=== PATIENT | female | born 1980 | race Caucasian/White ===

== ENCOUNTER 2017-08-23 08:43 | Day surgery (SDC) | payer BC ==
[~2017-08-23] VITALS: Ht 170.2 cm; Wt 93.9 kg
[~2017-08-23 08:43] MED LIST: BUPIVACAINE-EPI 0.25%-1:200000 50 ML VIAL. ONE; HYDROmorphone 2 MG/ML VIAL IV PRN; IOHEXOL 300 MG/ML 50 ML VIAL. ONE; IV RINGERS,LACTATED 1000ML 1,000 ML IV SCH; LIDOCAINE 1% PF 2 ML VIAL. ID PRN; MORPHINE SULFATE 2 MG/ML DISP.SYRIN. IV PRN; ONDANSETRON PF 4 MG/2 ML VIAL. IV PRN; PROCHLORPERAZINE 10 MG/2 ML VIAL. IV PRN; SURGICEL HEMOSTAT 4X8 EACH. ONE; fentaNYL PF VIAL 100 MCG/2 ML VIAL IV PRN
[2017-08-23] MEDS ORDERED: ONDANSETRON PF 4 MG/2 ML VIAL. ONE (09:56)
[2017-08-23] MEDS ORDERED: MIDAZOLAM HCL/PF 2 MG/2 ML VIAL. ONE (09:56)
[2017-08-23] MEDS ORDERED: LIDOCAINE 2% PF Vial for OR 5 ML VIAL. ONE (09:56)
[2017-08-23] MEDS ORDERED: ROCURONIUM 50 MG/5 ML VIAL. ONE (09:56)
[2017-08-23] MEDS ORDERED: fentaNYL PF VIAL 100 MCG/2 ML VIAL ONE (09:56)
[2017-08-23] MEDS ORDERED: PROPOFOL 20 ML IV ONE (09:56)
[2017-08-23] MEDS ORDERED: DEXAMETHASONE SOD PHOS 20 MG/5 ML VIAL. ONE (09:56)
[2017-08-23] MEDS ORDERED: GLYCOPYRROLATE 1 MG/5 ML VIAL. ONE (11:11)
[2017-08-23] MEDS ORDERED: KETOROLAC 30 MG/ML INJ FOR OR. INJ ONE (11:41)
[2017-08-23] MEDS ORDERED: SEVOFLURANE 31 TO 60 MINUTES. IH ONE (11:41)
--- NOTE | 2017-08-23 11:44 | PDOC4 ---
Operative Note Operative Note Date: 08/23/2017 Preoperative diagnosis: Chronic cholecystitis Postoperative diagnosis: Same Procedure: Laparoscopic cholecystectomy Surgeon: Dheeraj Specimen: Gallbladder Dictation: Patient is a 37-year-old female is had right upper quadrant abdominal pain and abnormal ultrasound and HIDA scan. The procedure of lap scopic cholecystectomy was explained to the patient detail was benefits were also discussed including bleeding infection injury to intra-abdominal contents possibly necessitating further or open operations alternatives to this procedure also discussed with the patient seemed understanding gave both verbal and written consent had procedure performed. Patient was taken to the operating room placed in supine position general anesthesia was initiated once patient was asleep and intubated her abdomen was prepped and draped in usual sterile fashion using ChloraPrep and area just below the umbilicus injected with quarter percent Marcaine with epinephrine incisions made lead blade scalpel and a varies needle was placed within the abdomen pneumoperitoneum was achieved once this complete a 11 mm port was placed in fibromata camera was placed within the abdomen. The abdomen was inspected no other at maladies were noted at this time one 5 mm port was placed in the epigastrium under direct visualization a second port was placed in the right upper quadrant 2 . The dome of the gallbladder was grasped retracted cephalad the infundibulum of the gallbladder was grasped retracted laterally exposing the triangle clothe adherent tissues the triangle are taken down bluntly dissection exposing the cystic duct and cystic artery both were doubly clipped and transected the gallbladder was taken off the liver with hook electrocautery placed within an Endo Catch bag and removed from the umbilicus right upper quadrant was then irrigated and suctioned dry hemostasis deemed to be appropriate and the pneumoperitoneum was reduced all ports removed fascial defect at the umbilicus closed [id number] 0 Vicryl suture and the skin was approximated all port sites with 4-0 Monocryl. Mastisol Steri-Strips and Band-Aids were applied as dressings patient was awakened and extubated in the operating room taken recovery in stable condition. All sponge instrument and needle counts listed as correct estimated blood loss 30 mL LISA PURI MD Aug 23, 2017 11:44
--- NOTE | 2017-08-23 11:45 | DISCH ---
DISCHARGE INSTRUCTIONS Condition on Discharge Condition on Discharge: Stable Activity After Discharge Activity Instructions for Disc: Avoid exertion Other activity instructions: No lifting >20lbs for 2 weeks Diet after Discharge Diet after Discharge: Low Fat Wound Incision Care Other wound/incision instructi: May shower in 24 hours Contacting the after DC Call your doctor for: If your condition worsens Follow-Up Follow up with: Dr Puri in 2 weeks LISA PURI MD Aug 23, 2017 11:45
[2017-08-23] MEDS ORDERED: HYDR-971 PO (12:31)
[2017-08-23] MEDS ORDERED: HYDROcodone/APAP 5/325MG 1 TAB TABLET ONE (13:01)
[2017-08-23 13:16] VITALS: BP 95/70
== END 2017-08-23 13:36 | disposition home or self-care (01) ==
LOC: SURG 08:43
PROVIDERS: ATTEND Surgery
DX: K81.1 Chronic cholecystitis (principal); Z90.710 Acquired absence of both cervix and uterus; F17.210 Nicotine dependence, cigarettes, uncomplicated
CPT/HCPCS: 47562; J0690; J0780; J1100; J1885; J2250; J2405; J2704; J3010; J3490; J7030; 88304; Q9967; J2001